=== PATIENT | female | born 1955 | race Caucasian/White ===

== ENCOUNTER 2017-05-11 14:46 | Emergency (ER) | payer SELFPAY ==
[2015-12-14 14:15] VITALS: BMI 24.8
[~2017-05-11 14:46] MED LIST: CARDURA1 MG PO; CATAPRES0.1 MG PO; GLUCOPHAGE500 MG PO; LOPRESSOR50 MG PO; NORCO 10/325 TA1 TA1; NORVASC10 MG PO; VASOTEC10 MG PO
== END 2017-05-11 16:48 | disposition home or self-care (01) ==
LOC: D.ER 14:46
DX: S93.602A Unspecified sprain of left foot, initial encounter (principal); W19.XXXA Unspecified fall, initial encounter; Y93.89 Activity, other specified; Y92.029 Unspecified place in mobile home as the place of occurrence of the external cause; I10 Essential (primary) hypertension

== ENCOUNTER 2017-08-31 09:57 | Emergency (ER) | payer SELFPAY ==
[2015-12-14 14:15] VITALS: BMI 24.8
== END 2017-08-31 11:22 | disposition home or self-care (01) ==
LOC: D.ER 09:57
DX: S43.402A Unspecified sprain of left shoulder joint, initial encounter (principal); W19.XXXA Unspecified fall, initial encounter; Y93.89 Activity, other specified; Y92.410 Unspecified street and highway as the place of occurrence of the external cause; I10 Essential (primary) hypertension

== ENCOUNTER → 2017-12-11 08:08 | Outpatient (CLI) | payer MEDICAID ==
[2015-12-14 14:15] VITALS: BMI 24.8
== END | disposition home or self-care (01) ==
LOC: D.CT 08:08
DX: R06.09 Other forms of dyspnea (principal)

== ENCOUNTER 2018-02-24 10:45 | Outpatient (CLI) | payer MEDICAID ==
[~2018-02-24] VITALS: Ht 172.7 cm; Wt 76.4 kg
--- NOTE | ~2018-02-24 | HEMODYNAMI ---
PATIENT:CHAYO FLORES MEDICAL RECORD: [id number] : 53 LOCATION:REMA ADMISSION DATE: 02/24/18 Generatedon:02/24/201813:37 Patient name: CHAYO FLORES Patient #: [id number] SSN: : 1955 Date of study: 02/24/2018 Page: Of Hemodynamic Procedure Report Patient Data Patient Demographics Procedure consent was obtained First Name: CHAYO Gender: Female Last Name: SANDRA : 1955 [facility] Initial: CUONG Age: 63 year(s) Patient #: [id number] Race: Unknown Additional ID: [id number] Contact details [address]: [address] [place] [address] State: [place] City: [place] Zip code: [address] Past Medical History Allergies: No known allergies Admission Admission Data Admission Date: 02/24/2018 Admission Time: 10:45 Procedure Procedure Types Cath Procedure Diagnostic Procedure LHC LHC w/Coronaries Procedure Description Procedure Date Procedure Date: 02/24/2018 Procedure Start Time: 13:27 Procedure End Time: 13:34 Procedure Staff Name Function Giuliano Vital MD Performing Physician Elly Millan RT Monitor Maite Eagle RT Scrub Lorenzo Middleton RN Nurse Procedure Data Cath Procedure Fluoroscopy Diagnostic fluoroscopy Total fluoroscopy Time: 2 time: 2 min min Diagnostic fluoroscopy Total fluoroscopy dose: 261 dose: 261 mGy mGy Contrast Material Contrast Material Type Amount (ml) Isovue 300 50 Entry Location Entry Primary Successful Side Size Upsize Upsize Entry Closure Ag ccessful Closure Location (Fr) 1 (Fr) 2 (Fr) Remarks Device Remarks Radial Right 6 Fr Mechanical artery Short Compression Estimated blood loss: 5 ml Diagnostic catheters Device Type Used For End Catheter Placement DIAGNOSTIC [place] 110cm 5 Procedure Fr catheter ([id number]) Procedure Complications No complications Procedure Medications Medication Administration Route Dosage Oxygen etCO2 Nasal cannula 2 l/min Heparin Flush Bag added to field 2 bags (1000units/500ml NS) 0.9% NaCl I.V. 100 ml/hr Radial Cocktail added to field 1 syringe (Verapomil 2mg/Nitro 400mcg/Heparin 1500units) Fentanyl I.V. 50 mcg Versed I.V. 1 mg Radial Cocktail I.A. 1 syringe (Verapomil 2mg/Nitro 400mcg/Heparin 1500units) Hemodynamics Rest Heart Rate: 55 (bpm) Pressure Samples Time Site Value (mmHg) Purpose Heart Use Rate(bpm) 13:29 LV 85/6,9 Snapshot 57 13:29 AO 74/45(60) Pullback 63 13:29 LV 93/5,8 Pullback 63 Gradients Valve Time Site 1 Site 2 Mean SEP/DFP Peak To Heart Use (mmHg) (sec/min) Peak Rate (mmHg) (bpm) Aortic 13:29 LV AO 17 19 19 63 93/5,8 74/45(60) Calculations Valve P-P Mean Valve Index Valve Source Name Gradient Area Flow (cm2) Aortic 19 17 19 17 Snapshots Pre Cath Intra NCS Post Cath Vital Signs Time Heart Resp SPO2 etCO2 NIBP (mmHg) Rhythm Pain Sedation Rate (ipm) (%) (mmHg) Status Level (bpm) 13:20:41 54 16 100 41.2 150/76(111) NSR 0 (11) 10(A) , No pain 13:24:59 53 16 99 0 131/74(96) NSR 0 (11) 10(A) , No pain 13:29:09 91 17 99 32.2 102/60(86) NSR 0 (11) 9(A) , No pain 13:33:11 54 16 95 39 106/70(83) NSR 0 (11) 9(A) , No pain 13:36:32 52 17 99 37.5 109/66(79) NSR 0 (11) 9(A) , No pain Medications Time Medication Route Dose Verified Delivered Reason Notes Effectiveness by by 13:20:15 Oxygen etCO2 2 l/min Giuliano Ventura Per Nasal St Girma Middleton RN physician cannula 13:20:23 Heparin Flush added 2 bags Giuliano Ventura used for Bag to St Girma Middleton RN procedure (1000units/500ml field VALENTINE NS) 13:20:33 0.9% NaCl I.V. 100 Giuliano Ventura Per ml/hr St Girma Middleton RN physician 13:20:43 Radial Cocktail added 1 Giuliano Ventura used for (Verapomil to syringe St Girma Middleton head mixer 2mg/Nitro field VALENTINE 400mcg/Heparin 1500units) 13:25:44 Fentanyl I.V. 50 mcg Giuliano Ventura for sedation St Girma Middleton RN, MD 13:25:50 Versed I.V. 1 mg Giuliano Ventura for sedation St Girma Middleton RN, MD 13:29:27 Radial Cocktail I.A. 1 Giuliano Nobles for (Verapomil syringe [facility] vasodilation 2mg/Nitro MD VALENTINE 400mcg/Heparin 1500units) Procedure Log Time Note 12:50:47 Maite Eagle RT(R) sent for patient. Start room use. 12:59:48 Time tracking: Regular hours (M-F 7:00 - 5:00) 12:59:55 Plan of Care:Hemodynamics will remain stable., Cardiac rhythm will remain stable., Comfort level will be maintained., Respiratory function will remain adequate., Patient/ family verbilizes understanding of procedure., Procedure tolerated without complication., Recovers from procedure without complications.. 13:00:02 H&P Date Dictated: 02/18/2018 Within 30 days and on chart., H&P Addendum completed by physician on day of procedure. (MUST COMPLETE FOR ALL OUTPATIENTS). 13:00:04 Signed procedure consent form obtained from patient. 13:07:19 Patient received from Pre/Post Procedure Room to CCL 2 Alert and oriented. Tansferred to table in Supine position. 13:07:20 Warm blankets applied, and andrés hugger turned on for patient comfort. 13:07:20 Correct patient and procedure confirmed by team. 13:07:21 ECG and BP/O2 sat monitors applied to patient. 13:15:39 Vital chart was started 13:15:43 Full Disclosure recording started 13:15:47 Family in patients room. 13:15:48 Patient NPO since Midnight. 13:15:55 Patient allergic to No known allergies 13:15:58 Is the patient allergic to Iodine/contrast media? No. 13:16:02 Was the patient premedicated? Yes 13:16:05 Is patient on blood thinner?No 13:16:09 Patient diabetic? Yes. 13:16:11 If diabetic: On Metformin? No 13:16:16 Snore? No 13:16:18 Sleep apnea? No 13:16:25 Dentures? Yes in tight 13:16:35 IV patent on arrival in left forearm with 0.9% NaCl at [facility]. 13:16:41 Lab results completed and on chart. 13:16:44 Right Radial & Right Groin area was prepped with chlora-prep and draped in sterile fashion 13:16:46 Alarms reviewed by R. N. 13:16:46 Sharps counted by scrub and verified by R.N. 13:16:48 Physician paged 13:16:49 Physician arrived 13:16:59 Baseline sample Acquired. 13:20:15 Oxygen 2 l/min etCO2 Nasal cannula was administered by Lorenzo Middleton RN; Per physician; 13:20:23 Heparin Flush Bag (1000units/500ml NS) 2 bags added to field was administered by Lorenzo Middleton RN; used for procedure; 13:20:33 0.9% NaCl 100 ml/hr I.V. was administered by Lorenzo Middleton RN; Per physician; 13:20:43 Radial Cocktail (Verapomil 2mg/Nitro 400mcg/Heparin 1500units) 1 syringe added to field was administered by Lorenzo Middleton RN; used for procedure; 13:21:18 Baseline sample Acquired. 13:21:25 Rhythm: sinus bradycardia 13:21:28 Pre-procedure instructions explained to patient. 13:21:28 Pre-op teaching completed and patient verbalized understanding. 13:21:43 Use device set Radial Dx or PCI 13:21:44 ACIST Syringe (40872) opened to sterile field. 13:21:45 Bag Decanter () opened to sterile field. 13:21:46 ACIST Hand Control (48696) opened to sterile field. 13:21:46 ACIST Manifold (25152) opened to sterile field. 13:21:47 Tegaderm 4 x 4 (1626W) opened to sterile field. 13:21:48 Medline Cath Pack ([id number]) opened to sterile field. 13:21:49 DIAGNOSTIC WIRE .035 260cm J wire (802395) opened to sterile field. 13:21:50 MBrace Wrist Support ([id number]) opened to sterile field. 13:21:50 SHEATH 6Fr Prelude Radial ([id number]) opened to sterile field. 13:: --------ALL STOP TIME OUT------ :: Final Timeout: patient, procedure, and site verified with staff and physician. All members of the team are in agreement. 13::30 Right Radial & Right Groin site verified by team. 13::32 Physical assessment completed. ASA score P 2 - A patient with mild systemic disease as per Giuliano Vital MD. 13::35 Sedation plan: IV Moderate Sedation Medication:Versed, Fentanyl 13::44 Fentanyl 50 mcg I.V. was administered by Lorenzo Middleton RN; for sedation; ::50 Versed 1 mg I.V. was administered by Lorenzo Middleton RN; for sedation; 13::34 Procedure started. 13::39 Local anesthetic to right radial artery with Lidocaine 2% by Giuliano Vital MD.INITIAL ACCESS ONLY 13::48 A 6 Fr Short sheath was inserted into the Right Radial artery 13::21 A DIAGNOSTIC [place] 110cm 5 Fr catheter (195998) was advanced over the wire and used for Procedure. 13::34 Zero performed for pressure channel P1 13::27 Radial Cocktail (Verapomil 2mg/Nitro 400mcg/Heparin 1500units) 1 syringe I.A. was administered by Giuliano Vital MD; for vasodilation; ::32 LV gram done using FRANKS 13::34 Injector settings: Ml/sec: 7, Volume: 15, ::42 EF : 55 % 13::49 LV hemodynamics recorded. 13:32:09 LCA angiography performed. 13:32:25 RCA angiography performed. 13::34 Catheter removed. 13:32:38 TR BAND Standard ([id number]) opened to sterile field. 13::42 Procedure ended.(Physican Out) ::48 Sheath removed intact; hemostasis achieved with Mechanical Compression to the Right Radial artery. 13:33:20 Fluoroscopy time 02.00 minutes. 13:33:24 Fluoroscopy dose: 261 mGy 13:33:24 Flurop Dose total: 261 13:33:27 Contrast amount:Isovue 300 50ml. 13:33:28 Sharps counted by scrub and verified by R.N. 13:33:31 TR band inflated with 10cc of air. 13:33:34 Post-procedure physical assessment completed. ASA score P 2 - A patient with mild systemic disease as per Giuliano Vital MD. 13:33:38 Post procedure rhythm: unchanged. 13:33:40 Estimated blood loss: 5 ml 13:33:45 Post procedure instruction explained to patient.Patient verbalizes understanding. 13:33:46 Patient needs reinforcement of post procedure teaching. 13:34:38 Procedure and supply charges have been captured, reviewed, submitted and are correct. 13:34:40 Procedure Complication : No complications 13:34:42 Vital chart was stopped 13:34:42 See physician's report for complete and final results. 13:34:44 Report given to Pre/Post Procedure Room. 13:34:46 Patient transfered to Pre/Post Procedure Room with Bed. 13:34:48 Procedure ended. 13:34:48 Full Disclosure recording stopped 13:34:52 End room use (Document Last) Device Usage Item Name Manufacture Quantity Catalog Number Hospital Part Current M inimal Lot# / Charge Number Stock Stock Serial# Code ACIST Syringe Acist 1 61551 266055 260856 874461 2 0 (50842) [employer] Bag Decanter Microtek 1 2002S 847171 61814 548420 5 (2001S) Medical Inc. ACIST Hand Acist 1 42306 059381 595691 530452 5 Control (10683) [employer] Systems Inc ACIST Manifold Acist 1 71716 607589 673754 653592 5 (13971) Medical Systems Inc Tegaderm 4 x 4 3M 1 1626W 310729 186852 649570 5 (1626W) Medline Cath Cardinal 1 [id number] 687460 93628 321163 5 [facility] Enefgy ([id number]) DIAGNOSTIC WIRE St Kong 1 693287 351518 015034 333079 3 0 .035 260cm J wire (224254) MBrace Wrist Advanced 1 140-0250-00 405868 81273 963824 5 Support Vascular ([id number]) Dynamics SHEATH 6Fr Merit 1 [id number] 530172 375377 638488 5 Prelude Radial Medical ([id number]) DIAGNOSTIC Terumo 1 40-2057 313499 873831 834664 5 [place] 110cm 5 Fr catheter (431813) TR BAND Terumo 1 [id number] 840218 395528 703895 4 0 Standard ([id number]) Signature Audit [place] Stage Time Signature Unsigned Intra-Procedure 02/24/2018 Elly Millan 1:37:28 PM RT(R) Signatures Monitor : Elly Millan Signature : RT Date : Time : [place] [id number] [place] [address]
--- NOTE | ~2018-02-24 | OP ---
PATIENT NAME: CHAYO FLORES MEDICAL RECORD: [id number] :53 LOCATION:D.CAT ADMISSION DATE: SURGEON: ERIK KRAUSE MD DATE OF OPERATION: 02/24/2018 PROCEDURE: Left heart catheterization, selective coronary angiography, right radial artery approach. CATHETER: [place] catheter, radial sheath. The procedure was well tolerated. The patient returned to the rubio. Sheath was removed. TR band was placed. FINDINGS: Left ventriculography in 30-degree FRANKS view, normal wall motion and normal systolic function. CORONARY ANATOMY: LEFT MAIN: Left main is free of disease. LAD: Free of disease in the diagonal system. CIRCUMFLEX: Free of disease in the marginal system. RIGHT CORONARY ARTERY: Dominant artery, gives rise to PDA, free of disease. IMPRESSION: Normal LV systolic function, normal coronary anatomy. TRANSINT:[id number] Voice Confirmation ID: [id number] DOCUMENT ID: [id number] ERIK KRAUSE MD at 1505 CC: [id number] DICTATION DATE: 02/24/18 1339 KAYAKING INSTRUCTOR: 02/24/18 1411 DEP CLI 02/24/18 [place] [id number] [place] [id number]
[2018-02-24] MEDS ORDERED: HYZAAR 50-12.51 TAB PO (11:37)
[2018-02-24] MEDS ORDERED: CARDURA8 MG PO (11:37)
[2018-02-24] MEDS ORDERED: GLIMEPIRIDE4 MG PO (11:38)
[2018-02-24] MEDS ORDERED: NORVASC5 MG PO (11:38)
[2018-02-24] MEDS ORDERED: CATAPRES0.2 MG PO (11:39)
[2018-02-24] MEDS ORDERED: METOPROLOL TAR100 M1 PO (11:39)
[2018-02-24 11:47] VITALS: BP 147/66; Ht 172.7 cm; Wt 76.4 kg
[2018-02-24 11:56] LABS: BASOPHILS 0.4 % (0-2); EOSINOPHILS 1.5 % (0-7); HEMATOCRIT 34.7 % (36.0-48.0); HEMOGLOBIN 11.6 g/dL (12-16); IMMATURE GRANULOCYTES 0.1 % (0-5); LYMPHOCYTES 33.7 % (15-50); MCH 29.7 pg (26.0-34.0); MCHC 33.4 g/dL (31.0-37.0); MCV 88.7 fL (80.0-100.0); MEAN PLATELET VOLUME 9.4 fL (7.4-10.4); MONOCYTES 7.9 % (2-11); NEUTROPHILS 56.4 % (40-80); PLATELET COUNT 250 10x3/uL (130-400); RBC 3.91 10x6/uL (4.00-5.40); RDW 12.8 % (11.5-14.5); WBC 6.8 10x3/uL (4.8-10.8)
[2018-02-24 12:08] LABS: ANION GAP 9.4 mmol/L (8-16); CALCIUM 8.6 mg/dL (8.5-10.1); CARBON DIOXIDE 32.4 mmol/L (21.0-32.0); CREATININE - SERUM 1.2 mg/dL (0.6-1.3); POTASSIUM - SERUM 3.8 mmol/L (3.5-5.1)
== END 2018-02-24 16:10 | disposition home or self-care (01) ==
LOC: D.CATH 10:45
PROVIDERS: Internal Medicine Interventional Cardiology
DX: R07.9 Chest pain, unspecified (principal); Z01.812 Encounter for preprocedural laboratory examination

== ENCOUNTER → 2018-03-11 07:47 | Outpatient (CLI) | payer MEDICAID ==
[2018-02-24 11:47] VITALS: BMI 25.6
[~2018-03-11 07:47] MED LIST changes: +CARDURA8 MG PO; +CATAPRES0.2 MG PO; +GLIMEPIRIDE4 MG PO; +HYZAAR 50-12.51 TAB PO; +METOPROLOL TAR100 M1 PO; +NORVASC5 MG PO
== END | disposition home or self-care (01) ==
LOC: D.RAD 07:47
DX: R13.10 Dysphagia, unspecified (principal)

== ENCOUNTER → 2018-06-22 12:40 | Outpatient (CLI) | payer MEDICAID ==
[2018-02-24 11:47] VITALS: BMI 25.6
== END | disposition home or self-care (01) ==
LOC: D.RT 12:40
DX: J44.9 Chronic obstructive pulmonary disease, unspecified (principal); R91.1 Solitary pulmonary nodule

== ENCOUNTER → 2018-08-24 09:16 | Outpatient (CLI) | payer MEDICAID ==
[2018-02-24 11:47] VITALS: BMI 25.6
== END | disposition home or self-care (01) ==
LOC: D.US 09:16
DX: I12.9 Hypertensive chronic kidney disease with stage 1 through stage 4 chronic kidney disease, or unspecified chronic kidney disease (principal); N18.3 Chronic kidney disease, stage 3 (moderate); E11.22 Type 2 diabetes mellitus with diabetic chronic kidney disease; Q61.3 Polycystic kidney, unspecified; Z68.25 Body mass index [BMI] 25.0-25.9, adult; Z68.28 Body mass index [BMI] 28.0-28.9, adult

== ENCOUNTER 2019-05-05 16:08 | Observation (INO) | payer MEDICARE ==
[~2019-05-05] VITALS: Ht 172.7 cm; Wt 85.0 kg
[2019-05-05] MEDS ORDERED: JANUVIA100 MG PO (16:32)
[2019-05-05 17:09] LABS: BASOPHILS 0.4 % (0-2); EOSINOPHILS 1.8 % (0-7); HEMATOCRIT 37.1 % (36.0-48.0); HEMOGLOBIN 12.2 g/dL (12-16); IMMATURE GRANULOCYTES 0.3 % (0-5); LYMPHOCYTES 40.7 % (15-50); MCH 29.7 pg (26.0-34.0); MCHC 32.9 g/dL (31.0-37.0); MCV 90.3 fL (80.0-100.0); MEAN PLATELET VOLUME 9.7 fL (7.4-10.4); NEUTROPHILS 49.8 % (40-80); PLATELET COUNT 257 10x3/uL (130-400); RBC 4.11 10x6/uL (4.00-5.40); RDW 12.6 % (11.5-14.5)
[2019-05-05 17:23] LABS: ALBUMIN 3.8 g/dL (3.4-5.0); ALKALINE PHOSPHATASE 53 U/L (46-116); ALT (SGPT) 17 U/L (10-68); BILIRUBIN - TOTAL 0.38 mg/dL (0.2-1.3); CALC OSMOLALITY 288 mosm/kg (275-300); CALCIUM 9.1 mg/dL (8.5-10.1); CARBON DIOXIDE 29.4 mmol/L (21.0-32.0); CHLORIDE - SERUM 105 mmol/L (98-107); CREATININE - SERUM 1.3 mg/dL (0.6-1.3); GLUCOSE 150 mg/dL (74-106); POTASSIUM - SERUM 3.7 mmol/L (3.5-5.1); PROTEIN - SERUM 7.7 g/dL (6.4-8.2); SODIUM 143 mmol/L (136-145); UREA NITROGEN 15 mg/dL (7-18); eGFR NON AFRICAN AMERICAN 43 mL/min (90-120)
[2019-05-05 17:42] LABS: CKMB 0.8 U/L (0.0-3.6); CREATINE KINASE 131 UL (21-215); MAGNESIUM - SERUM 1.9 mg/dL (1.8-2.4); TROPONIN-I < 0.017 ng/mL (0.000-0.060)
[2019-05-05] MEDS ORDERED: BAYER CHEWABLE81 MG PO (18:20)
[2019-05-05] MEDS ORDERED: COZAAR100 MG PO (18:21)
--- NOTE | 2019-05-05 21:41 | NUR ---
PAGED DR. MCDANIEL TO RESTART PATIENT HOME MEDS. RECEIVED ORDERS TO RESTART HOME MEDS.
[2019-05-05 22:57] VITALS: BP 161/79; Ht 172.7 cm; Wt 85.0 kg
[2019-05-05 23:52] LABS: CKMB 0.5 U/L (0.0-3.6); CREATINE KINASE 96 UL (21-215); TROPONIN-I < 0.017 ng/mL (0.000-0.060)
[2019-05-06] VITALS: BP 112/67
[2019-05-06 04:00] VITALS: BP 115/61
[2019-05-06 05:59] LABS: CKMB 0.6 U/L (0.0-3.6); CREATINE KINASE 78 UL (21-215)
[2019-05-06 06:08] LABS: TROPONIN-I < 0.017 ng/mL (0.000-0.060)
[2019-05-06 09:45] VITALS: BP 129/66
--- NOTE | 2019-05-06 10:38 | NUR ---
OUT OF ROOM BY W/C FOR STRESS TEST.
--- NOTE | 2019-05-06 13:00 | NUR ---
STRESS TEST COMPLETED. DIET RESUMED.
[2019-05-06 13:22] VITALS: BP 130/71
[2019-05-06 17:36] VITALS: BP 117/70
[2019-05-06 20:00] VITALS: BP 129/57
[2019-05-07] VITALS: BP 134/72
[2019-05-07 04:00] VITALS: BP 106/50
--- NOTE | 2019-05-07 07:05 | NUR ---
REPORT RECEIVED. WILL CONTINUE WITH POC. PT CURRENTLY LYING ON LEFT SIDE. RESTING. CALL LIGHT W/I REACH. RR EVEN AND UNLABORED ON RA. R.FOR AND L.WRIST PIV SALINE LOCKED. NO S/S OF DISTRESS NOTED. PT DENIES ANY NEEDS. WILL CTM.
[2019-05-07 08:32] VITALS: BP 115/79
--- NOTE | 2019-05-07 09:29 | NUR ---
PT DISCHARGED HOME VIA WHEELCHAIR WITH FAMILY. PIV REMOVED WITH CATHETER TIP FULLY INTACT. TELEMETRY REMOVED AND RETURNED. PT SIGNED PROPER DISCHARGE INSTRUCTIONS AND REMOVED ALL VALUABLES FROM THE ROOM.
--- NOTE | 2019-05-10 09:28 | MORECARE ---
CASE MANAGEMENT DISCHARGE SUMMARY PATIENT: CHAYO OLMOS UNIT: [id number] ADM DATE: 05/05/19 AGE: 64 : 54 SEX: F ROOM/BED: D.1211 AUTHOR: MEIR COREAS PHYSICIAN: REFERRING PHYSICIAN: YVON MCDANIEL M.D. DATE OF SERVICE: 05/10/19 Discharge Plan Patient Name: CHAYO OLMOS Facility: [facility]:[place] : 1955 Planned Disposition: Home Anticipated Discharge Date: 05/07/19 Discharge Date: 05/07/2019 Expected LOS: 2 Initial Reviewer: [email or web address] Initial Review Date: 05/10/2019 Generated: 05/10/19 10:28 am Coverage Notice Reviewer: [email or web address] Nelli Schmid Notice Issued Date-Time: 05/05/2019 17:45 Notice Type: Medicare Outpatient Observation Notice Notice Delivered To: Patient Relationship to Patient: Self Global Human Resources Director Name: Chayo Olmos Delivery Method: - Mary Jo Days: Prior Verbal Notification: Recipient Understood Notice: Yes Recipient Signature: Yes Med Rec Note Co-signed by Attending: Coverage Notice Comment: Patient Name: CHAYO OLMOS Page [phone] at 0928 All edits/amendments must be made on the electronic document DICTATION DATE: 05/10/19927 ZINC ETCHER: JALEEL 05/10/19927 RPT#: [id number] DC DATE:05/07/19 STATUS: DIS IN [place] [id number] [place] [address] END OF REPORT
== END 2019-05-07 09:30 | disposition home or self-care (01) ==
LOC: D.ER 16:08 → D.M2 17:11 → OBSVTIME 17:11 → D.M2 05-07 09:30
PROVIDERS: Emergency Medicine; ADMIT Internal Medicine Cardiovascular Disease; ATTEND Internal Medicine Cardiovascular Disease
DX: I20.0 Unstable angina (principal); I10 Essential (primary) hypertension; E11.9 Type 2 diabetes mellitus without complications; R11.0 Nausea; R61 Generalized hyperhidrosis; E78.5 Hyperlipidemia, unspecified

== ENCOUNTER → 2019-06-10 08:37 | Outpatient (CLI) | payer MEDICARE, OTHER ==
[2019-05-05 22:57] VITALS: BMI 28.4
[~2019-06-10 08:37] MED LIST changes: +BAYER CHEWABLE81 MG PO; +COZAAR100 MG PO; +JANUVIA100 MG PO
--- NOTE | 2019-06-11 13:51 | EC ---
PATIENT:CHAYO FLORES DATE OF SERVICE: 06/10/19 SEX: F MEDICAL RECORD: [id number] DATE OF : 53 LOCATION:D.RT AGE OF PATIENT: 64 ADMISSION DATE: 06/10/19 REFERRING PHYSICIAN: INTERPRETING PHYSICIAN: ERIK KRAUSE MD ECHOCARDIOGRAM REPORT ECHO CHARGES 4 ECHO COMPLETE Date: 06/10/19 CLINICAL DIAGNOSIS: MURMUR ECHOCARDIOGRAPHIC MEASUREMENTS (adult normal given) AC root (d.<3.7cm) 2.3 cm LV Septum d (<1.2 cm> 1.1 cm Valve Excursion 1.9 cm LV Septum (systole) 1.4 cm Left Atria (s.<4.0cm> 3.4 cm LVPW d(<1.2cm) 1.2 cm RV (d.<2.3cm) 2.9 cm LVPW (sytole) 1.5 cm LV diastole(<5.6CM) 5.1 cm MV E-F(>70mm/sec) cm LV systole 3.5 cm LVOT Diameter 1.6 cm MV exc.(>10mm) cm Est.ejection fraction (50-75%) % DOPPLER: LVIT cm/sec A 66.0 cm/sec E 120 cm/sec LA cm/sec RVSP 47.1 mmHg LVOT 122 cm/sec AOP1/2T m/s Asc. Ao 167 cm/sec RVOT 62.0 cm/sec RA cm/sec PA 88.0 cm/sec AV Gradient Peak 11.2 mmHg AV Mean 5.1 mmHg AV Area 1.5 cm MV Gradient Peak 7.1 mmHg MV Mean 2.6 mmHg MV Area cm COMMENTS: Drier Belt Conveyor: Sherice WITTOE Rate Clerk: 3 Dr. Kang TAPE# PACS Pericardial Effusion N DATE OF SERVICE: Adequate 2D, color flow, spectral Doppler, and M-Mode. No LVH. LV internal dimension is normal. Wall motion is normal. EF is greater than or equal to 55%. Aortic valve sclerosis without stenosis by Doppler interrogation. The left atrium is normal at 3.4 cm. Mitral valve is thickened. Mild MR. Right-sided chambers are upper limits of normal to mildly dilated. Moderate to severe TR. RV systolic pressure estimated greater than or equal to 47 mmHg via the continuity equation. ECHOCARDIOGRAM REPORT [id number] CHAYO FLORES TRANSINT:[id number] Voice Confirmation ID: [id number] DOCUMENT ID: [id number] ERIK KRAUSE MD at 1351 CC: [id number] DICTATION DATE: 06/11/19 1156 FRONT END ARCHITECT: 06/11/19 1213 DEP CLI 06/10/19 [place] [id number] [place] [id number]
== END | disposition home or self-care (01) ==
LOC: D.ECHO 06-09 11:00 → D.HCCARDIO 06-09 11:00 → D.RT 06-09 11:00 → D.HCCARDIO 06-09 12:30 → D.RT 06-09 13:00 → D.CT 06-09 14:00 → D.RT 08:37
PROVIDERS: ATTEND Internal Medicine Pulmonary Disease
DX: J44.9 Chronic obstructive pulmonary disease, unspecified (principal); R91.1 Solitary pulmonary nodule; R01.1 Cardiac murmur, unspecified

== ENCOUNTER 2019-12-24 06:13 | Day surgery (SDC) | payer MEDICARE, OTHER ==
[2019-12-23 15:40] LABS: ANION GAP 8.4 mmol/L (8-16); CALCIUM 9.2 mg/dL (8.5-10.1); CARBON DIOXIDE 28.3 mmol/L (21.0-32.0); CREATININE - SERUM 1.5 mg/dL (0.6-1.3); POTASSIUM - SERUM 3.7 mmol/L (3.5-5.1)
[2019-12-23 15:57] LABS: HEMATOCRIT 38.8 % (36.0-48.0); HEMOGLOBIN 12.7 g/dL (12-16); MCH 29.5 pg (26.0-34.0); MCHC 32.7 g/dL (31.0-37.0); MEAN PLATELET VOLUME 9.3 fL (7.4-10.4); RBC 4.31 10x6/uL (4.00-5.40); RDW 13.3 % (11.5-14.5); WBC 8.6 10x3/uL (4.8-10.8)
[~2019-12-24] VITALS: Ht 172.7 cm; Wt 87.5 kg
[2019-12-24 06:37] VITALS: BP 121/54; Ht 172.7 cm; Wt 87.5 kg
[2019-12-24] MEDS ORDERED: DURICEF500 MG PO (09:13)
[2019-12-24] MEDS ORDERED: HYDROCODON-ACE1 EAC7 PO (09:13)
--- NOTE | 2019-12-24 13:56 | NUR ---
1035 IV DC'D. CATHETER TIP INTACT. NO BLEEDING AT SITE. BANDAID APPLIED. 1100 SLING APPLIED TO RIGHT ARM FOR SUPPORT PER DR ORDER AND PT'S REQUEST. ICE PACK REMAINING ON RIGHT WRIST. DISCHARGE INSTRUCTIONS REVIEWED WITH PT WHO VOICES UNDERSTANDING OF INSTRUCTIONS.
--- NOTE | 2019-12-28 07:10 | OP ---
PATIENT NAME: CHAYO OLMOS MEDICAL RECORD: [id number] :53 LOCATION:D.OPS ADMISSION DATE: SURGEON: JOSEE GONZALEZ DO DATE OF OPERATION: 12/24/2019 PROCEDURE PERFORMED: Right endoscopic carpal tunnel release. PREOPERATIVE DIAGNOSIS: Right carpal tunnel syndrome. POSTOPERATIVE DIAGNOSIS: Right carpal tunnel syndrome. INDICATIONS: Ms. Olmos is a 64-year-old female who had a nerve conduction study and pain in her right hand for quite some time, been waking her up at night, going to sleep on her when she was talking on the phone or driving. She was tired of dealing with it and wants something done surgically. We got the nerve conduction velocity test done that showed severe compression of the median nerve at the wrist. I informed her of the risks including infection, bleeding, damage to the median nerve, continued pain and loss of feeling motor or sensory nerve to the thumb also. If we do not see it going through the transverse carpal ligament, there was a risk of that being cut. She was okay with all that and signed the consent. SURGEON: Josee Gonzalez DO DESCRIPTION OF PROCEDURE: The patient was taken to the operative suite, laid in supine position, given general anesthetic and LMA was placed. Right upper extremity was prepped and draped in sterile fashion. Timeout was performed. Everyone was in agreeance with the correct side, site, patient and procedure. We then began by exsanguinating the right upper extremity with an Esmarch. Tourniquet was inflated to 250 mmHg, it was up for 6 minutes. I then made an incision centered over the palmaris longus tendon, approximately a cm in length and used two Ragnells to dissect down to the carpal tunnel to the median nerve, released the forearm fascia from distal to proximal under direct visualization and then went into the carpal tunnel using a Ragnell and the dilators. I then brought the sheath in and put it in the carpal tunnel. Brought the camera in and noted a good view of the transverse carpal ligament. There were no transligamentous nerve seen, cleaned it off with a rasp and a probe and then brought in the blade to raised it up and transected the transverse carpal ligament until fat herniated down into the carpal tunnel and then removed all the equipment, and under direct loupe visualization using a Ragnell and scissors and any remaining fibers of the transverse carpal ligament. The tourniquet was then let down. I injected the site with 0.25% Marcaine with epinephrine, approximately 8 mL around the site and then Chauncey Elder, certified surgical assistant banquet manager came in and closed the wound with a 5-0 Monocryl in an inverted interrupted fashion. Steri-Strip was placed on the wound, Adaptic, 4 x 4, cast padding and a Coban was lightly wrapped on the wrist. She was then awakened and taken to recovery room in stable condition. BLOOD LOSS: Minimal. COMPLICATIONS: None. TRANSINT:[id number] Voice Confirmation ID: [id number] DOCUMENT ID: [id number] OPERATIVE REPORT [id number] CHAYO OLMOS,JOSEE White DO at 0710 CC: [id number] DICTATION DATE: 12/24/19914 WOOL WASHING MACHINE OPERATOR: 12/24/19 1549 [facility] 12/24/19 [facility] [address] [place] [address]
== END 2019-12-24 11:12 | disposition home or self-care (01) ==
LOC: D.OPS 06:13 → D.PAN 08:15 → D.OPS 08:15 → D.PAN 08:20 → D.OPS 11:12 → D.PAN 11:15 → D.OPS 11:15
PROVIDERS: Anesthesiology; ATTEND Orthopaedic Surgery
DX: G56.01 Carpal tunnel syndrome, right upper limb (principal)

== ENCOUNTER → 2020-03-29 12:41 | Outpatient (CLI) | payer MEDICARE, OTHER ==
[2019-12-24 06:37] VITALS: BMI 29.4
[~2020-03-29 12:41] MED LIST changes: +DURICEF500 MG PO; +HYDROCODON-ACE1 EAC7 PO
== END | disposition home or self-care (01) ==
LOC: D.HCCECHO 12:41
PROVIDERS: ATTEND Internal Medicine Interventional Cardiology
DX: R09.89 Other specified symptoms and signs involving the circulatory and respiratory systems (principal)

== ENCOUNTER → 2020-11-29 11:07 | Outpatient (CLI) | payer MEDICARE, OTHER ==
[2019-12-24 06:37] VITALS: BMI 29.4
== END | disposition home or self-care (01) ==
LOC: D.NM 11:07
PROVIDERS: ATTEND Family Medicine
DX: M79.604 Pain in right leg (principal)

== ENCOUNTER → 2020-12-07 09:27 | Outpatient (CLI) | payer MEDICARE, OTHER ==
[2019-12-24 06:37] VITALS: BMI 29.4
== END | disposition home or self-care (01) ==
LOC: D.US 09:27
PROVIDERS: ATTEND Internal Medicine
DX: I10 Essential (primary) hypertension (principal); N18.30 Chronic kidney disease, stage 3 unspecified; E11.22 Type 2 diabetes mellitus with diabetic chronic kidney disease; D63.1 Anemia in chronic kidney disease; I73.9 Peripheral vascular disease, unspecified; R60.0 Localized edema; Z68.28 Body mass index [BMI] 28.0-28.9, adult

== ENCOUNTER → 2020-12-21 11:59 | Outpatient (CLI) | payer MEDICARE, OTHER ==
[2019-12-24 06:37] VITALS: BMI 29.4
== END | disposition home or self-care (01) ==
LOC: D.RAD 11:59
PROVIDERS: ATTEND Family Medicine
DX: R93.89 Abnormal findings on diagnostic imaging of other specified body structures (principal)